=== PATIENT | female | born 2000 | race Caucasian/White ===

== ENCOUNTER 2024-03-21 13:40 | Emergency (ER) | payer OTHER ==
[~2024-03-21] VITALS: Ht 167.6 cm; Wt 58.0 kg
[2024-03-21 13:52] VITALS: O2SAT 99
[2024-03-21] MEDS ORDERED: LORAZEPAM 2MG/ML INJ IV ONE (14:00)
[2024-03-21 14:12] LABS: BASOPHILS % 0.7 % (0.0-2.0); EOSINOPHILS % 0.6 % (0.0-5.0); HEMATOCRIT. 40.8 % (36.0-48.0); HEMOGLOBIN. 13.8 g/dL (12.0-16.0); LYMPHOCYTES % 14.5 % (20.0-50.0); MEAN CORPUSCULAR HEMOGLOBIN 30.6 pg (28.0-32.0); MEAN CORPUSCULAR HGB CONC 33.8 g/dL (31.0-37.0); MEAN CORPUSCULAR VOLUME 90.4 fL (81.0-99.0); MEAN PLATELET VOLUME 9.4 fl (7.4-10.4); MONOCYTES % 6.3 % (2.0-8.0); NEUTROPHILS % 77.9 % (40.0-76.0); PLATELET 264 x1000/uL (130-400); RED BLOOD CELL COUNT 4.52 mill/uL (4.2-5.4); WHITE BLOOD COUNT 12.8 x1000/uL (4.5-11.0)
[2024-03-21 14:19] LABS: CHLORIDE 108 mEq/L (98-107); POTASSIUM 4.2 mEq/L (3.5-5.1); SODIUM 136 mEq/L (136-145)
[2024-03-21 14:20] LABS: CARBON DIOXIDE 19 mEq/L (21-32)
[2024-03-21 14:25] LABS: CREATININE 0.7 mg/dL (0.6-1.0); GLUCOSE 86 mg/dL (70-105); UREA NITROGEN BLOOD 8 mg/dL (9-23)
[2024-03-21 14:27] LABS: ALANINE AMINOTRANSFERASE 9 IU/L (10-49); ALBUMIN 4.2 g/dL (3.2-4.8); ASPARTATE AMINOTRANSFERASE 22 IU/L (<34); BILIRUBIN TOTAL 0.7 mg/dL (0.1-1.0); HCG SCREEN NEGATIVE; PROTEIN TOTAL 6.6 g/dL (6.0-8.3)
[2024-03-21 14:58] LABS: CALCIUM 10.1 mg/dL (8.7-10.4)
[2024-03-21] MEDS: KETOROLAC 15MG/ML VIAL IV ONE (16:06)
[2024-03-21] MEDS ORDERED: KEPP500 MT (16:26)
[2024-03-21] MEDS: LEVETIRACETAM 500MG PREMIX 100 ML IV ONE (16:41)
[2024-03-21 17:22] VITALS: BP 121/58; PULSE 69; RESP 15; TEMP 98.4
== END 2024-03-21 17:23 | disposition home or self-care (01) ==
LOC: ER 13:53
DX: R56.9 Unspecified convulsions (principal)
CPT/HCPCS: 80053; 84703; 85025; 36415; 96365; 96375; 99284; J1953; J1885; Z7610 ×2